=== PATIENT | female | born 1990 | race Hispanic/Latino ===

== ENCOUNTER 2020-09-28 17:23 | Emergency (ER) | payer MEDICAID ==
[~2020-09-28] VITALS: Ht 165.1 cm; Wt 81.6 kg
[2020-09-28 17:25] VITALS: BP 129/94
[2020-09-28 18:01] LABS: BASOPHILS % (AUTO) 0.4 % (0.0-5.0); EOSINOPHILS % (AUTO) 4.8 % (0.0-8.0); LYMPHOCYTES % (AUTO) 29.2 % (21.0-51.0); MEAN CORPUSCULAR HEMOGLOBIN 29.2 pg (27.0-33.0); MEAN CORPUSCULAR HGB CONC 33.1 g/dL (32.0-36.0); MEAN CORPUSCULAR VOLUME 88.2 fL (79-99); MONOCYTES % (AUTO) 7.3 % (3.0-13.0); NEUTROPHILS % (AUTO) 57.9 % (40.0-77.0); PLATELET COUNT (AUTO) 318 K/uL (130-400); RED BLOOD CELL COUNT(AUTO) 4.76 MIL/uL (4.00-5.50)
[2020-09-28 18:03] LABS: APPEARANCE,URINE Cloudy (CLEAR); BILIRUBIN,URINE Negative (NEGATIVE); COLOR,URINE Yellow (YELLOW); GLUCOSE, URINE (UA) Negative (NEGATIVE); KETONES,URINE Negative (NEGATIVE); LEUKOCYTE ESTERASE ,URINE Small (NEGATIVE); NITRATE,URINE Negative (NEGATIVE); OCCULT BLOOD,URINE Negative (NEGATIVE); PROTEIN,URINE Negative (NEGATIVE); UROBILINOGEN,URINE 0.2 mg/dL (0.2-1.0)
[2020-09-28 18:10] LABS: CREATININE 0.8 mg/dL (0.5-1.5); POTASSIUM 3.5 mmol/L (3.5-5.1)
[2020-09-28 18:15] LABS: ALBUMIN 3.8 g/dL (3.5-5.0); BILIRUBIN,TOTAL 0.3 mg/dL (0.2-1.0); TOTAL PROTEIN, SERUM 7.7 g/dL (6.0-8.3)
[2020-09-28 18:25] LABS: BACTERIA,URINE Moderate /HPF (None Seen); RBC,URINE 0-1 /HPF (0-1)
[2020-09-28 18:26] LABS: MUCUS,URINE Rare LPF (None Seen); SQUAMOUS EPITHELIAL CELL,UR Rare /HPF (0-2)
[2020-09-28] MEDS ORDERED: PHENAZOPYRIDINE HCL 200 MG TABLET ONE (18:38)
[2020-09-29] MEDS ORDERED: CEPH500B PO (12:30)
[2020-09-29] MEDS ORDERED: ACET1TAB25 PO (12:30)
== END 2020-09-28 21:06 | disposition left against medical advice (07) ==
LOC: EDH 18:37
DX: R10.9 Unspecified abdominal pain (principal); Z53.21 Procedure and treatment not carried out due to patient leaving prior to being seen by health care provider
CPT/HCPCS: 36415; 80053; 81001; 85025; 87077; 87088; 87186; 96372

== ENCOUNTER 2020-09-29 09:50 | Emergency (ER) | payer MEDICAID ==
[~2020-09-29] VITALS: Ht 165.1 cm; Wt 81.6 kg
[2020-09-29 09:52] VITALS: BP 126/90
[2020-09-29 10:44] LABS: BASOPHILS % (AUTO) 0.3 % (0.0-5.0); EOSINOPHILS % (AUTO) 3.7 % (0.0-8.0); HEMATOCRIT 40.3 % (36-48); LYMPHOCYTES % (AUTO) 26.2 % (21.0-51.0); MEAN CORPUSCULAR VOLUME 88.2 fL (79-99); MONOCYTES % (AUTO) 5.6 % (3.0-13.0); NEUTROPHILS % (AUTO) 63.6 % (40.0-77.0); PLATELET COUNT (AUTO) 312 K/uL (130-400); RED BLOOD CELL COUNT(AUTO) 4.57 MIL/uL (4.00-5.50); RED CELL DISTRIBUTION WIDTH 12.1 % (11.0-15.5); WHITE BLOOD COUNT (AUTO) 7.1 K/uL (4.8-10.8)
[2020-09-29 10:46] LABS: APPEARANCE,URINE Cloudy (CLEAR); BILIRUBIN,URINE Negative (NEGATIVE); COLOR,URINE Dark Yellow (YELLOW); GLUCOSE, URINE (UA) Negative (NEGATIVE); KETONES,URINE Negative (NEGATIVE); LEUKOCYTE ESTERASE ,URINE Small (NEGATIVE); NITRATE,URINE Positive (NEGATIVE); OCCULT BLOOD,URINE Trace (NEGATIVE); PROTEIN,URINE Negative (NEGATIVE)
[2020-09-29 11:02] LABS: ALBUMIN 3.6 g/dL (3.5-5.0); BILIRUBIN,TOTAL 0.3 mg/dL (0.2-1.0); CREATININE 0.8 mg/dL (0.5-1.5); POTASSIUM 3.9 mmol/L (3.5-5.1); RBC,URINE 0-1 /HPF (0-1); TOTAL PROTEIN, SERUM 7.3 g/dL (6.0-8.3); WBC,URINE 0-1 /HPF (0-1)
[2020-09-29 11:04] LABS: BACTERIA,URINE Moderate /HPF (None Seen)
[2020-09-29] MEDS ORDERED: CEFTRIAXONE 1G VIAL IM SCH (12:00)
[2020-09-29] MEDS ORDERED: KETOROLAC 30MG VIAL (30MG/ML) IM ONE (12:00)
[2020-09-29] MEDS ORDERED: LIDOCAINE HCL-MPF 1% 2ML VIAL ONE (12:13)
[2020-09-29] MEDS ORDERED: CEPH500B PO (12:30)
[2020-09-29] MEDS ORDERED: ACET1TAB25 PO (12:30)
[2020-09-29 13:22] VITALS: BP 124/74
== END 2020-09-29 13:23 | disposition home or self-care (01) ==
LOC: EDH 09:50
DX: N39.0 Urinary tract infection, site not specified (principal)
CPT/HCPCS: 36415; 80053; 85025; 96372 ×2; 99284; J0696; J1885; J3490